=== PATIENT | female | born 1945 | race Caucasian/White ===

== ENCOUNTER 2018-01-16 22:19 | Emergency (ER) | payer MEDICARE, OTHER ==
[~2018-01-16] VITALS: Ht 165.1 cm; Wt 97.5 kg
[~2018-01-16 22:19] MED LIST: ASPIR 8181 MG PO; CHOLESTEROL; LEVAQUIN500 MG PO; LISINOPRIL40 MG PO; METFORMIN HCL500 MG PO; PRILOSEC OTC20 MG PO
[2018-01-16 22:52] LABS: BASOPHILS % 0.4 % (0.0-1.0); EOSINOPHILS # (AUTO) 0.1 (0.0-0.4); EOSINOPHILS % 0.8 % (0.0-6.0); HEMOGLOBIN 12.8 g/dL (12.0-16.0); LYMPHOCYTES # (AUTO) 2.3 (1.0-3.2); LYMPHOCYTES % 29.5 % (18.0-39.1); MEAN CORPUSCULAR HGB CONC 34.6 g/dL (31-35); MEAN CORPUSCULAR VOLUME 83.7 fL (81-99); MONOCYTES # (AUTO) 0.6 (0.2-0.8); MONOCYTES % 8.2 % (4.4-11.3); NEUTROPHILS # (AUTO) 4.6 (2.1-6.9); NEUTROPHILS % 60.6 % (38.7-80.0); PLATELET COUNT 119 x10e3/uL (140-360); RED BLOOD COUNT 4.42 x10e6/uL (3.6-5.1); RED CELL DISTRIBUTION WIDTH 13.2 % (11.7-14.4)
[2018-01-16 23:12] LABS: ALBUMIN 3.9 g/dL (3.5-5.0); ALBUMIN/GLOBULIN RATIO 1.1 (0.8-2.0); ANION GAP 15.9 mmol/L (8-16); CALCIUM 9.1 mg/dL (8.4-10.2); CREATININE, SERUM 1.03 mg/dL (0.57-1.11)
[2018-01-16 23:17] LABS: POTASSIUM 2.9 mmol/L (3.5-5.1)
[2018-01-16 23:20] LABS: CREATINE KINASE MB 1.8 ng/mL (0-5.0)
--- NOTE | 2018-01-16 23:23 | Diagnostic Imaging Report ---
EXAMINATION: CHEST 2 VIEWS INDICATION: Shortness of breath COMPARISON: 07/02/2015 FINDINGS: TUBES and LINES: None. LUNGS: Lungs are not well inflated. Lungs are clear. There is no evidence of pneumonia or pulmonary edema. PLEURA: No pleural effusion or pneumothorax. HEART AND MEDIASTINUM: Cardiac size is mildly enlarged. There are atherosclerotic calcifications within the aorta. BONES AND SOFT TISSUES: No acute osseous lesion. Soft tissues are unremarkable. UPPER ABDOMEN: No free air under the diaphragm. IMPRESSION: No acute thoracic abnormality. Signed by: Dr. Kristian Viramontes M.D. on 01/16/2018 11:19 PM
[2018-01-16 23:43] LABS: INR 0.98; PROTHROMBIN TIME 12.2 seconds (11.9-14.5)
[2018-01-16 23:44] LABS: PARTIAL THROMBOPLASTIN TIME 27.6 seconds (23.8-35.5)
[2018-01-17 00:04] LABS: BILIRUBIN,URINE NEGATIVE (NEGATIVE); CLARITY,URINE CLEAR (CLEAR); COLOR,URINE YELLOW (YELLOW); KETONES,URINE NEGATIVE (NEGATIVE); LEUKOCYTE ESTERASE ,URINE 1+ (NEGATIVE); NITRITE,URINE NEGATIVE (NEGATIVE); PROTEIN,URINE DIPSTICK NEGATIVE (NEGATIVE); URINE UROBILINOGEN 0.2 mg/dL (0.2 - 1)
[2018-01-17 00:13] LABS: BACTERIA,URINE FEW /HPF; EPITHELIAL CELLS,URINE FEW /LPF; RBC,URINE 0-5 /HPF (0-5)
[2018-01-17] MEDS ORDERED: POTASSIUM CHLORIDE 20 MEQ TAB CR PO STA (00:57)
[2018-01-17] MEDS ORDERED: CEFTRIAXONE SOD 1 GM VIAL IV ONE (01:00)
[2018-01-17 01:03] VITALS: BP 173/104
== END 2018-01-17 01:34 | disposition home or self-care (01) ==
LOC: ER 22:19
DX: R06.09 Other forms of dyspnea (principal); E87.6 Hypokalemia; K52.9 Noninfective gastroenteritis and colitis, unspecified; E87.1 Hypo-osmolality and hyponatremia; N30.90 Cystitis, unspecified without hematuria
CPT/HCPCS: 36415; 71046; 80053; 81001; 82550; 82553; 83880; 84484; 85025; 85610; 85730; 93005; 99284; J0696

== ENCOUNTER → 2018-03-13 | Outpatient (CLI) | payer MEDICARE ==
--- NOTE | 2018-03-13 08:55 | Diagnostic Imaging Report ---
PROCEDURE: CT CHEST WITHOUT CONTRAST CT scan of the chest WITHOUT intravenous contrast, using standard protocol. TECHNIQUE: The chest was scanned utilizing a multidetector helical scanner from the apex to the level of the adrenal glands. No IV contrast was administered because of referring physician request. Coronal and sagittal multiplanar reformations were obtained. COMPARISON: Chest radiograph 01/16/2018. INDICATIONS: DYSPNEA ON EXERTION FINDINGS: Lines/tubes: None. Lungs and Airways: 3 mm juxtapleural left lower lobe nodule series 3 image 37. 4 mm juxtapleural left lower lobe nodule series 3 image 39. Small air filled cyst in the left lower lobe. 4 mm right apical nodule series 3 image 11. No airspace consolidation, bronchiectasis, or fibrotic change. Pleura: No pleural effusion or pneumothorax Heart and mediastinum: Visualized portions of the thyroid gland appear normal. No axillary, hilar, or mediastinal lymphadenopathy. Borderline ectasia of the ascending thoracic aorta (3.9 cm). Pulmonary outflow tract is of normal caliber. Great vessel origins are normal in caliber and configuration. Atherosclerotic calcification of the aortic arch and great vessel origins. Normal heart size without pericardial effusion. Soft tissues: No focal soft tissue abnormalities. Abdomen: Visualized portions of the liver, spleen, pancreas, adrenals are unremarkable. Bones: No osseous destructive lesions. Multiple healed fracture deformities of several right-sided ribs. IMPRESSION: No acute thoracic CT abnormalities. Scattered bilateral solid pulmonary nodules measuring up to [address] scan of the chest without contrast in one year is suggested if the patient is at high risk for malignancy. (Fleischner Society 2017 guidelines). Atherosclerotic vascular disease with borderline ectasia of the ascending thoracic aorta (3.9 cm). Dictated by: Fabian Durham M.D. on 03/13/2018 at 9:03 Electronically approved by: Fabian Durham M.D. on 03/13/2018 at 9:03
== END ==
LOC: CT 07:42
PROVIDERS: ATTEND Internal Medicine
DX: R06.09 Other forms of dyspnea (principal)
CPT/HCPCS: 71250

== ENCOUNTER 2018-04-17 12:33 | Inpatient (IN) | payer MEDICARE, OTHER ==
[~2018-04-17] VITALS: Ht 165.1 cm; Wt 97.8 kg
[2018-04-17] MEDS ORDERED: VANCOMYCIN 1GM/NS 250 ML 250 ML IV STA (12:35)
[2018-04-17] MEDS ORDERED: PIPER-TAZ 3.375 GM 50 ML IV STA (12:35)
--- OUTSIDE RECORDS SUMMARY | 2018-04-17 12:36 | XMS REPORT ---
Author Author [facility] Address Unknown Phone Unavailable Care Team Providers Care Manager Billing Name Role Phone ULYSSES ESPINOZA Unavailable Unavailable Frederick KO Unavailable Unavailable Payers Payer Name Policy Type Policy Number Effective Date Expiration Date Problems This patient has no known problems. Allergies, Adverse Reactions, Alerts Allergy Name Allergy Type Status Severity Reaction(s) Onset Date Inactive Date Treating Clinician Comments codeine DA Active [place] 2014-09-02 00:00:00 Medications This patient has no known medications. Results Test Description Test Time Test Comments Text Results Atomic Results Result Comments CT CHEST WO 2018-03-13 09:03:00 [place] [address] Patient Name: MEREDITH LOVING MR #: [id number] : 1945 Age/Sex: 72/F Req #: [id number] Adm Physician: Ordered by: ULYSSES ESPINOZA MD Report #: [id number] Location: [place] Room/Bed: Procedure: [id number] CT/CT CHEST WO Exam Date: Exam Time: REPORT STATUS: Signed PROCEDURE: CT CHEST WITHOUT CONTRAST CT scan of the chest WITHOUT intravenous contrast, using standard protocol. TECHNIQUE: The chest was scanned utilizing a multidetector helical scanner from the apex to the level of the adrenal glands. No IV contrast was administered because of referring physician request. Coronal and sagittal multiplanar reformations were obtained. COMPARISON: Chest radiograph 01/16/2018. INDICATIONS: DYSPNEA ON EXERTION FINDINGS: Lines/tubes: None. Lungs and Airways: 3 mm juxtapleural left lower lobe nodule series 3 image 37. 4 mm juxtapleural left lower lobe nodule series 3 image 39. Small air filled cyst in the left lower lobe. 4 mm right apical nodule series 3 image 11. No airspace consolidation, bronchiectasis, or fibrotic change. Pleura: No pleural effusion or pneumothorax Heart and mediastinum: Visualized portions of the thyroid gland appear normal. No axillary, hilar, or mediastinal lymphadenopathy. Borderline ectasia of the ascending thoracic aorta (3.9 cm). Pulmonary outflow tract is of normal caliber. Great vessel origins are normal in caliber and configuration. Atherosclerotic calcification of the aortic arch and great vessel origins. Normal heart size without pericardial effusion. Soft tissues: No focal soft tissue abnormalities. Abdomen: Visualized portions of the liver, spleen, pancreas, adrenals are unremarkable. Bones: No osseous destructive lesions. Multiple healed fracture deformities of several right-sided ribs. IMPRESSION: No acute thoracic CT abnormalities. Scattered bilateral solid pulmonary nodules measuring up to [address] scan of the chest without contrast in one year is suggested if the patient is at high risk for malignancy. (Fleischner Society 2017 guidelines). Atherosclerotic vascular disease with borderline ectasia of the ascending thoracic aorta (3.9 cm). Dictated by: Ming Flores M.D. on 03/13/2018 at 9:03 Electronically approved by: Ming Flores M.D. on 03/13/2018 at 9:03 Dictated By: MING FLORES MD 2 Transcribed By: TYRESE on 03/13/18902 COPY TO: ULYSSES ESPINOZA MD CHEST 2 VIEWS 2018-01-16 23:19:00 [place] [address] Patient Name: MEREDITH LOVING MR #: [id number] : 1945 Age/Sex: 72/F Req #: [id number] Adm Physician: Ordered by: TRAY KO MD Report #: [id number] Location: ER Room/Bed: Procedure: [id number] DX/CHEST 2 VIEWS Exam Date: 01/16/18 Exam Time: 5 REPORT STATUS: Signed EXAMINATION: CHEST 2 VIEWS INDICATION: Shortness of breath COMPARISON: 07/02/2015 FINDINGS: TUBES and LINES: None. LUNGS: Lungs are not well inflated. Lungs are clear. There is no evidence of pneumonia or pulmonary edema. PLEURA: No pleural effusion or pneumothorax. HEART AND MEDIASTINUM: Cardiac size is mildly enlarged. There are atherosclerotic calcifications within the aorta. BONES AND SOFT TISSUES: No acute osseous lesion. Soft tissues are unremarkable. UPPER ABDOMEN: No free air under the diaphragm. IMPRESSION: No acute thoracic abnormality. Signed by: Dr. Kristian Viramontes M.D. on 01/16/2018 11:19 PM Dictated By: KRISTIAN HERNANDEZ MD 18 Transcribed By: KAREN on 01/16/182318 COPY TO: TRAY KO MD LOWER LEG LEFT [place] [address] Patient Name: MEREDITH LOVING MR #: [id number] : 1945 Age/Sex: 71/F Req #: [id number] Adm Physician: Ordered by: TRAY KO MD Report #: [id number] Location: ER Room/Bed: Procedure: [id number] DX/LOWER LEG LEFT Exam Date: 04/17/17 Exam Time: 2139 REPORT STATUS: Signed LOWER LEG LEFT HISTORY: Pain COMPARISON: None FINDINGS: Bones: Questionable cortical disruption at the proximal left fibular epiphysis Osseous alignment is within normal limits. Joints: Mild degenerative changes of the partially visualized left knee with medial compartment predominance. Soft tissues: The soft tissues appear unremarkable. IMPRESSION: Questionable cortical disruption at the proximal left fibular epiphysis. Correlated for point tenderness at the lateral lower knee Signed by: Dr. Kristian Viramontes M.D. on 04/17/2017 10:22 PM Dictated By: KRISTIAN HERNANDEZ MD 21 Transcribed By: KAREN on 04/17/172221 COPY TO: TRAY KO MD [place] [address] Patient Name: MEREDITH LOVING MR #: [id number] : 1945 Age/Sex: 71/F Req #: [id number] Adm Physician: Ordered by: TRAY KO MD Report #: [id number] Location: ER Room/Bed: Procedure: DX/COCCYX Exam Date: 04/17/17 Exam Time: 2139 REPORT STATUS: Signed LUMBAR 3 VIEW AND 2 VIEWS OF THE COCCYX HISTORY: Status post fall COMPARISON: None FINDINGS: Bones: No displaced fracture. Osseous alignment is within normal limits. Joints: Multilevel degenerative changes of the lumbar spine with extensive facet hypertrophy and anterolisthesis of L4 on L5 best seen on lateral view. Soft tissues: The soft tissues appear unremarkable. IMPRESSION: No acute radiographic abnormality. Signed by: Dr. Kristian Viramontes M.D. on 04/17/2017 10:23 PM Dictated By: KRISTIAN HERNANDEZ MD 22 Transcribed By: KAREN on 04/17/172222 COPY TO: TRAY KO MD LUMBAR 3 VIEW [place] [address] Patient Name: MEREDITH LOVING MR #: [id number] : 1945 Age/Sex: 71/F Req #: [id number] [facility] Physician: Ordered by: TRAY KO MD Report #: [id number] Location: ER Room/Bed: Procedure: DX/LUMBAR 3 VIEW Exam Date: 04/17/17 Exam Time: 2139 REPORT STATUS: Signed LUMBAR 3 VIEW AND 2 VIEWS OF THE COCCYX HISTORY: Status post fall COMPARISON: None FINDINGS: Bones: No displaced fracture. Osseous alignment is within normal limits. Joints: Multilevel degenerative changes of the lumbar spine with extensive facet hypertrophy and anterolisthesis of L4 on L5 best seen on lateral view. Soft tissues: The soft tissues appear unremarkable.
--- OUTSIDE RECORDS SUMMARY | 2018-04-17 12:36 | XMS REPORT | Clinical Summary ---
Author Author [facility] Address Unknown Phone Unavailable Care Team Providers Care Equipment Cleaner And Tester Name Role Phone Matt Marino MD PCP Allergies Comments Active Allergy Reactions Severity Noted Date Codeine GI 11/29/2016 Intolerance Medications End Date Status Medication Sig Dispensed Refills Start Date Active aspirin (ECOTRIN) 81 MG Take 81 mg by 0 enteric coated tablet mouth daily. Active hydroCHLOROthiazide Take 25 mg by 0 (HYDRODIURIL) 25 MG mouth daily. tablet Active pravastatin (PRAVACHOL) Take 40 mg by 0 40 MG tablet mouth daily. Active pantoprazole (PROTONIX) Take 40 mg by 0 40 MG EC tablet mouth daily. Active CHOLECALCIFEROL, VITAMIN Take by 0 D3, (VITAMIN D3 ORAL) mouth. 08/17/2017 amoxicillin (AMOXIL) 500 Take 1 14 capsule 0 MG capsule capsule (500 8 mg total) by mouth 2 (two) times a day for 7 days. 09/09/2017 chlorhexidine (PERIDEX) Apply 15 mL 900 mL 0 0.12 % solution to the mouth 8 or throat 2 (two) times a day for 30 days. Active Problems No known active problems Encounters Care Team Description Date Type Specialty Tory Tsang MD Granuloma and granuloma-like lesions of oral mucosa (Primary Dx) 09/07/2017 Office Visit Otolaryngology Tory Tsang MD 08/11/2017 Lab Lab Tory Tsang MD Oral bleeding (Primary Dx) 08/11/2017 Office Visit Otolaryngology Tory Tsang MD 08/10/2017 Lab Lab Tory Tsang MD Pyogenic granuloma oral mucosa (Primary Dx) 08/10/2017 Procedure visit Otolaryngology Tory Tsang MD Pyogenic granuloma (Primary Dx) 07/29/2017 Office Visit Otolaryngology Tory Tsang MD Mandibular mass 07/25/2017 Hospital Radiology Encounter Tory Tsang MD Mandibular mass (Primary Dx) 07/18/2017 Office Visit Otolaryngology after 04/16/2017 Family History Medical History Relation Name Comments Cancer Father bone Other Father heart problems Other Mother heart problems Stroke Mother Cancer Son Relation Name Status Comments Father Mother Son Social History Date Tobacco Use Types Packs/Day Years Used Never Smoker Smokeless Tobacco: Never Used Alcohol Use Drinks/Week oz/Week Comments Yes rarely Sex Assigned at Date Recorded Not on file Industry Job Start Date Occupation Not on file Not on file Not on file Travel End Travel History Travel Start No recent travel history available. Last Filed Vital Signs Time Taken Vital Sign Reading 09/07/2017 10:01 AM CDT Blood Pressure 161/90 09/07/2017 10:01 AM CDT Pulse 62 - Temperature - - Respiratory Rate - - Oxygen Saturation - - Inhaled Oxygen - Concentration 09/07/2017 10:01 AM CDT Weight 98 kg (216 lb) 09/07/2017 10:01 AM CDT Height 165.1 cm (5' 5") 09/07/2017 10:01 AM CDT Body Mass Index 35.94 Plan of Treatment Health Maintenance Due Date Last Done Comments BREAST CANCER SCREENING 08/06/1995 COLON CANCER SCREENING 08/06/1995 SHINGRIX VACCINE (1 of 2) 08/06/1995 ZOSTER VACCINE 2005 PNEUMOCOCCAL 2010 POLYSACCHARIDE VACCINE AGE 65 AND OVER PNEUMOCOCCAL-13 2010 INFLUENZA VACCINE 01/04/2018 Procedures Comments Procedure Name Priority Date/Time Associated Diagnosis SURGICAL PATHOLOGY Routine 08/10/2017 REQUEST 10:[address] MAXILLOFACIAL WO Routine 07/25/2017 Mandibular mass CONTRAST 10:22 AM TRANSITION RN after 04/16/2017 Results * Surgical pathology request (08/10/2017 10:00 AM TRANSITION RN) [facility] DEPARTMENT OF PATHOLOGY AND GENOMIC MEDICINE Surgical pathology report See link below for PDF Lab [facility] DEPARTMENT OF Report PATHOLOGY AND GENOMIC MEDICINE Result status This is Final Report to [facility] DEPARTMENT OF [id number] PATHOLOGY AND GENOMIC MEDICINE Performing Organization Address City/State/Zipcode [place] [address] [place] [address] PATHOLOGY AND GENOMIC MEDICINE * CT Maxillofacial Wo Contrast (07/25/2017 10:22 AM TRANSITION RN) Narrative Performed At EXAMINATION:CT MAXILLOFACIAL WO CONTRAST [facility] COMPARISON:None CLINICAL HISTORY:R22.0 Localized swellingmass and lumphead, MASS OR LUMPMAXFACE, left mandibular posterior prominencetenderness TECHNIQUE: Coronal and sagittal reformations were accomplished. Up to date CT equipment and radiation dose reduction techniques were utilized. FINDINGS: No mass is identified posterior to the left mandible. The underlying bone is unremarkable. The parotid and submandibular glands are unremarkable. There are some scattered reactive nodes, but no adenopathy. There has been prior endoscopic sinus surgery. There continues to be mucosal thickening in the right maxillary sinus. The nasal cavity is clear. IMPRESSION: Unremarkable study. [facility]-[id number] Procedure Note Hm Interface, Radiology Results Incoming - 07/25/2017 11:08 AM TRANSITION RN EXAMINATION: CT MAXILLOFACIAL WO CONTRAST COMPARISON: None CLINICAL HISTORY: R22.0 Localized swelling mass and lump head, MASS OR LUMP MAXFACE, left mandibular posterior prominence tenderness TECHNIQUE: Coronal and sagittal reformations were accomplished. Up to date CT equipment and radiation dose reduction techniques were utilized. FINDINGS: No mass is identified posterior to the left mandible. The underlying bone is unremarkable. The parotid and submandibular glands are unremarkable. There are some scattered reactive nodes, but no adenopathy. There has been prior endoscopic sinus surgery. There continues to be mucosal thickening in the right maxillary sinus. The nasal cavity is clear. IMPRESSION: Unremarkable study. [facility]-[id number] Performing Organization Address City/State/Zipcode Phone Number [facility] [address] [place] [address] after 04/16/2017 Insurance Payer Benefit Subscriber ID Type Phone Address Plan / Group [employer] CIGNA xxxxxxxx HMO [facility] ADV Advance Directives Patient has advance care planning documents on file. For more information, harrison singh contact: Christiano Aldridge [address] [place] [address]
[2018-04-17 14:03] LABS: BASOPHILS # (AUTO) 0.1 (0.0-0.1); BASOPHILS % 0.6 % (0.0-1.0); EOSINOPHILS # (AUTO) 0.1 (0.0-0.4); EOSINOPHILS % 1.5 % (0.0-6.0); HEMATOCRIT 38.4 % (34.2-44.1); HEMOGLOBIN 12.8 g/dL (12.0-16.0); LYMPHOCYTES # (AUTO) 1.8 (1.0-3.2); MEAN CORPUSCULAR HEMOGLOBIN 30.3 pg (28-32); MEAN CORPUSCULAR HGB CONC 33.3 g/dL (31-35); MEAN CORPUSCULAR VOLUME 90.8 fL (81-99); MONOCYTES # (AUTO) 0.6 (0.2-0.8); MONOCYTES % 6.9 % (4.4-11.3); NEUTROPHILS # (AUTO) 6.4 (2.1-6.9); NEUTROPHILS % 70.1 % (38.7-80.0); PLATELET COUNT 115 x10e3/uL (140-360); RED BLOOD COUNT 4.23 x10e6/uL (3.6-5.1); RED CELL DISTRIBUTION WIDTH 13.6 % (11.7-14.4)
[2018-04-17 14:10] LABS: INR 0.87; PROTHROMBIN TIME 12.7 seconds (11.9-14.5)
[2018-04-17 14:11] LABS: PARTIAL THROMBOPLASTIN TIME 26.7 seconds (23.8-35.5)
[2018-04-17 14:18] LABS: ALBUMIN 4.1 g/dL (3.5-5.0); ALBUMIN/GLOBULIN RATIO 1.1 (0.8-2.0); ANION GAP 17.8 mmol/L (8-16); CALCIUM 8.9 mg/dL (8.4-10.2); CREATININE, SERUM 1.37 mg/dL (0.57-1.11); POTASSIUM 3.8 mmol/L (3.5-5.1)
[2018-04-17] MEDS ORDERED: ONDANSETRON HCL INJ 2 MG/ML VIAL IV PRN (14:45)
[2018-04-17] MEDS ORDERED: MORPHINE SULFATE 2 MG/ML SYR IV PRN (14:45)
[2018-04-17] MEDS ORDERED: SODIUM CHLORIDE FLUSH 10 ML SYR INJ PRN (14:45)
[2018-04-17] MEDS ORDERED: DEXTROSE 50% SYRINGE 50 ML IV PRN (14:45)
[2018-04-17] MEDS ORDERED: MORPHINE SULFATE INJ 4 MG/ML INJ IV PRN (15:00)
--- OUTSIDE RECORDS SUMMARY | 2018-04-17 15:51 | XMS REPORT | Clinical Summary ---
Author Author [facility] Address Unknown Phone Unavailable Care Team Providers Care Cook Italian Style Food Name Role Phone Matt Marino MD PCP [...] SURGICAL PATHOLOGY Routine 08/10/2017 REQUEST 10:00 AM PROFESSOR OF MECHANICAL ENGINEERING CT MAXILLOFACIAL WO Routine 07/25/2017 Mandibular mass CONTRAST 10:22 AM PROFESSOR OF MECHANICAL ENGINEERING after 04/16/2017 Results * Surgical pathology request (08/10/2017 10:00 AM PROFESSOR OF MECHANICAL ENGINEERING) [facility] DEPARTMENT OF PATHOLOGY AND GENOMIC MEDICINE Surgical pathology report See link below for PDF Lab [facility] DEPARTMENT OF Report PATHOLOGY AND GENOMIC MEDICINE Result status This is Final Report to [facility] DEPARTMENT OF [id number] PATHOLOGY AND GENOMIC MEDICINE Performing Organization Address City/State/Zipcode [place] [address] [place] [address] PATHOLOGY AND GENOMIC MEDICINE * CT Maxillofacial Wo Contrast (07/25/2017 10:22 AM PROFESSOR OF MECHANICAL ENGINEERING) Narrative Performed At EXAMINATION:CT MAXILLOFACIAL WO CONTRAST [...] nasal cavity is clear. IMPRESSION: Unremarkable study. [facility]-[id number] Procedure Note Hm Interface, Radiology Results Incoming - 07/25/2017 11:08 AM PROFESSOR OF MECHANICAL ENGINEERING EXAMINATION: CT MAXILLOFACIAL WO CONTRAST COMPARISON: None [...] nasal cavity is clear. IMPRESSION: Unremarkable study. [facility]-[id number] Performing Organization Address City/State/Zipcode Phone Number [facility] [address] [place] [address] after 04/16/2017 Insurance Payer Benefit Subscriber ID Type Phone Address Plan / Group [employer] CIGNA xxxxxxxx HMO [employer] [facility] [facility] ADV Advance Directives Patient has advance care planning documents on file. For more information, harrison singh contact: Christiano Aldridge [address] [facility] [place] [address]
[2018-04-17] MEDS: PIPER-TAZ 3.375 GM 50 ML IV SCH ×2 (18:22→23:44)
[2018-04-17] MEDS ORDERED: DIPHENHYDRAMINE HCL INJ 50 MG/ML VIAL ONE (20:02)
[2018-04-17] MEDS ORDERED: METHYLPREDNISOLONE SOD SUCC 125 MG/2ML VIAL ONE (20:02)
[2018-04-17] MEDS ORDERED: FAMOTIDINE 20 MG/2 ML VIAL IV ONE (20:02)
[2018-04-17] MEDS ORDERED: METHYLPREDNISOLONE SOD SUCC 125 MG/2ML VIAL IV ONE (20:04)
[2018-04-17] MEDS ORDERED: DIPHENHYDRAMINE HCL INJ 50 MG/ML VIAL IV ONE (20:15)
[2018-04-17] MEDS ORDERED: BUMETANIDE1 MG PO (20:38)
[2018-04-17] MEDS ORDERED: POTASSIUM CHLO10 ME1 PO (20:38)
[2018-04-17] MEDS ORDERED: PRAVASTATIN SOD40 MG PO (20:38)
[2018-04-17] MEDS ORDERED: CLINDAMYCIN HC150 MG (20:38)
[2018-04-17] MEDS ORDERED: NIFEDIPINE ER30 M1 PO (20:38)
[2018-04-17] MEDS ORDERED: ALBUTEROL0.63 MG/3 IH (20:38)
[2018-04-17] MEDS ORDERED: ULTRAM50 MG PO (20:38)
[2018-04-17] MEDS ORDERED: VANCOMYCIN 1GM/NS 250 ML 250 ML IV SCH (21:00)
[2018-04-17] MEDS: INSULIN REGULAR, HUMAN 100 UNIT/1 ML 3ML VIAL SQ SCH ×2 (21:00→21:37)
[2018-04-17] MEDS: FUROSEMIDE INJ 10 MG/ML 4 ML VIAL IV SCH (21:36)
[2018-04-17 21:54] VITALS: BP 142/82
[2018-04-17] MEDS ORDERED: SODIUM CHLORIDE 0.9% 250ML 250 ML ONE (23:36)
[2018-04-18] VITALS (7 sets, daily range): BP systolic 115–142; BP diastolic 71–91
[2018-04-18] MEDS ORDERED: PROAIR HFA INH8.5 GM ×2 (05:24→05:34)
[2018-04-18] MEDS ORDERED: POTASSIUM CHLO20 ME1 PO (05:24)
[2018-04-18] MEDS ORDERED: PANTOPRAZOLE SO40 MG PO (05:24)
[2018-04-18] MEDS ORDERED: ALBUTEROL SULFATE HFA 8GM INHALATION AEROSOL INH PRN (05:45)
[2018-04-18] MEDS ORDERED: TRAMADOL HCL 50 MG TAB PO PRN (05:45)
[2018-04-18 05:52] LABS: BASOPHILS % 0.1 % (0.0-1.0); HEMATOCRIT 38.7 % (34.2-44.1); LYMPHOCYTES # (AUTO) 0.7 (1.0-3.2); LYMPHOCYTES % 9.2 % (18.0-39.1); MEAN CORPUSCULAR HEMOGLOBIN 30.4 pg (28-32); MEAN CORPUSCULAR HGB CONC 33.6 g/dL (31-35); MEAN CORPUSCULAR VOLUME 90.4 fL (81-99); MONOCYTES # (AUTO) 0.1 (0.2-0.8); MONOCYTES % 1.2 % (4.4-11.3); NEUTROPHILS # (AUTO) 6.7 (2.1-6.9); NEUTROPHILS % 88.7 % (38.7-80.0); PLATELET COUNT 103 x10e3/uL (140-360); RED BLOOD COUNT 4.28 x10e6/uL (3.6-5.1); RED CELL DISTRIBUTION WIDTH 13.3 % (11.7-14.4)
[2018-04-18] MEDS: PIPER-TAZ 3.375 GM 50 ML IV SCH ×4 (05:53→23:34)
[2018-04-18 06:13] LABS: ANION GAP 18.8 mmol/L (8-16); CALCIUM 8.6 mg/dL (8.4-10.2); CREATININE, SERUM 1.22 mg/dL (0.57-1.11); POTASSIUM 3.8 mmol/L (3.5-5.1)
[2018-04-18] MEDS: INSULIN REGULAR, HUMAN 100 UNIT/1 ML 3ML VIAL SQ SCH ×4 (07:30→21:00)
[2018-04-18] MEDS: NIFEDIPINE CR 30 MG TAB PO SCH (08:20)
[2018-04-18] MEDS: FUROSEMIDE INJ 10 MG/ML 4 ML VIAL IV SCH ×2 (08:20→21:24)
[2018-04-18] MEDS: ASPIRIN 81 MG CHEW TAB PO SCH (08:20)
[2018-04-18] MEDS: BUMETANIDE 1 MG TAB PO SCH (08:20)
[2018-04-18] MEDS: PANTOPRAZOLE SOD 40 MG TABEC PO SCH (08:20)
[2018-04-18] MEDS: POTASSIUM CHLORIDE 20 MEQ TAB CR PO SCH (21:24)
[2018-04-18] MEDS: PRAVASTATIN 20 MG TAB PO SCH (21:24)
[2018-04-19] VITALS (7 sets, daily range): BP systolic 117–142; BP diastolic 66–86
[2018-04-19] MEDS ORDERED: ZOLPIDEM TARTRATE 5 MG TAB PO PRN (04:15)
[2018-04-19] MEDS: PIPER-TAZ 3.375 GM 50 ML IV SCH ×3 (05:11→18:28)
[2018-04-19] MEDS: INSULIN REGULAR, HUMAN 100 UNIT/1 ML 3ML VIAL SQ SCH ×4 (07:30→21:40)
[2018-04-19] MEDS: FUROSEMIDE INJ 10 MG/ML 4 ML VIAL IV SCH ×2 (09:50→21:41)
[2018-04-19] MEDS: NIFEDIPINE CR 30 MG TAB PO SCH (09:50)
[2018-04-19] MEDS: ASPIRIN 81 MG CHEW TAB PO SCH (09:50)
[2018-04-19] MEDS: BUMETANIDE 1 MG TAB PO SCH (09:50)
[2018-04-19] MEDS: PANTOPRAZOLE SOD 40 MG TABEC PO SCH (09:50)
[2018-04-19] MEDS: METOPROLOL TARTRATE 25 MG TAB PO SCH ×2 (14:28→18:28)
--- NOTE | 2018-04-19 14:58 | Consultation ---
DATE OF CONSULTATION: CARDIOLOGY CONSULTATION REASON FOR CONSULTATION: Heart failure. HISTORY OF PRESENT ILLNESS: This is a 72-year-old woman who has a prior history of hypertension, hyperlipidemia, diabetes mellitus, chronic kidney disease, chronic shortness of breath, lower extremity swelling, and venous insufficiency, who presented from her primary care provider with cellulitis, shortness of breath, lower extremity swelling. The patient reports progressively worsening shortness of breath, mild to moderate intensity. No other exacerbating or relieving factors. No associated chest pain. The patient had an abnormal stress test and underwent left heart catheterization, which revealed normal coronary arteries and left ventricular end-diastolic pressure of 9 mmHg. There were plans for right heart catheterization to rule out pulmonary hypertension; however, this was delayed due to ongoing medical issues. She was initiated on Bumex 1 mg twice daily for her lower extremity swelling. The patient also reports redness and warmth to her lower extremities. REVIEW OF SYSTEMS: A 12-point review of systems was conducted and was negative other than stated above in the HPI. PAST MEDICAL HISTORY: As stated above in the HPI including hypertension, chronic kidney disease, hyperlipidemia, chronic shortness of breath, venous insufficiency. PAST SURGICAL HISTORY: Cardiac catheterization, cholecystectomy, hysterectomy. FAMILY HISTORY: No premature coronary artery disease or sudden cardiac . SOCIAL HISTORY: No illicit drug use, alcohol use or tobacco use. ALLERGIES: CODEINE. MEDICATIONS: Please see medication reconciliation form. PHYSICAL EXAMINATION VITAL SIGNS: Temperature 96.6, heart rate 110, blood pressure 120/71, oxygen saturation 92% on room air, respiratory rate 20. GENERAL: She is a well-appearing, elderly woman lying comfortably in bed. HEAD: Normocephalic and atraumatic. EYES: The extraocular movements are intact. Conjunctivae are clear. NECK: No JVD. No bruits. CARDIOVASCULAR: She is tachycardic, regular rhythm with ectopy. Normal S1 and S2. No murmur is appreciated. LUNGS: Diminished breath sounds at bilateral bases. ABDOMEN: Soft, nontender and nondistended. EXTREMITIES: There is 1 to 2+ pitting edema. There is erythema. VASCULAR: Diminished pulses. SKIN: Warm, dry. Erythema to the lower extremities. NEUROLOGIC: No focal deficits noted. All laboratory data and chemistries were reviewed. CT of the chest shows no acute thoracic CT abnormalities. Scattered small pulmonary nodules. Ectasia of the thoracic aorta at 3.9 cm. IMPRESSION AND RECOMMENDATIONS 1. Shortness of breath. This patient has chronic shortness of breath and is currently being evaluated as an outpatient. Her echocardiogram showed normal left ventricular size and function. I can perform a right heart catheterization, which was planned already as an outpatient, if the patient has no bacteremia and is hemodynamically stable. Defer all other evaluations and treatments to pulmonary. 2. Hypertension. The patient's blood pressure is well controlled. The patient is on nifedipine. Can consider taking her off of this, as this has a known side effect of lower extremity swelling. 3. Venous insufficiency. Treatment as an outpatient. 4. Lower extremity swelling and cellulitis. Antibiotics per primary team. Continue Bumex, however, increase this to b.i.d. dosing. Thank you for this consultation. We will follow along with you. Job#: [id number]
[2018-04-19] MEDS: PRAVASTATIN 20 MG TAB PO SCH (21:41)
[2018-04-19] MEDS: POTASSIUM CHLORIDE 20 MEQ TAB CR PO SCH (21:41)
[2018-04-20] VITALS (7 sets, daily range): BP systolic 105–174; BP diastolic 64–78
[2018-04-20] MEDS: PIPER-TAZ 3.375 GM 50 ML IV SCH ×4 (00:23→18:17)
[2018-04-20] MEDS: METOPROLOL TARTRATE 25 MG TAB PO SCH ×4 (00:24→18:17)
[2018-04-20 05:55] LABS: BASOPHILS % 0.5 % (0.0-1.0); EOSINOPHILS # (AUTO) 0.1 (0.0-0.4); EOSINOPHILS % 0.8 % (0.0-6.0); HEMATOCRIT 33.5 % (34.2-44.1); HEMOGLOBIN 11.3 g/dL (12.0-16.0); LYMPHOCYTES # (AUTO) 1.9 (1.0-3.2); LYMPHOCYTES % 29.4 % (18.0-39.1); MEAN CORPUSCULAR HEMOGLOBIN 30.2 pg (28-32); MEAN CORPUSCULAR HGB CONC 33.7 g/dL (31-35); MEAN CORPUSCULAR VOLUME 89.6 fL (81-99); MONOCYTES # (AUTO) 0.5 (0.2-0.8); MONOCYTES % 8.3 % (4.4-11.3); NEUTROPHILS # (AUTO) 3.9 (2.1-6.9); NEUTROPHILS % 60.2 % (38.7-80.0); PLATELET COUNT 154 x10e3/uL (140-360); RED BLOOD COUNT 3.74 x10e6/uL (3.6-5.1); RED CELL DISTRIBUTION WIDTH 13.5 % (11.7-14.4)
[2018-04-20 06:19] LABS: ALBUMIN 3.2 g/dL (3.5-5.0); CALCIUM 9.1 mg/dL (8.4-10.2); CREATININE, SERUM 1.28 mg/dL (0.57-1.11)
[2018-04-20] MEDS: INSULIN REGULAR, HUMAN 100 UNIT/1 ML 3ML VIAL SQ SCH ×4 (07:30→21:00)
[2018-04-20] MEDS ORDERED: POTASSIUM CHLORIDE 20 MEQ TAB CR PO NR (07:30)
[2018-04-20] MEDS: NIFEDIPINE CR 30 MG TAB PO SCH (09:15)
[2018-04-20] MEDS: PANTOPRAZOLE SOD 40 MG TABEC PO SCH (09:15)
[2018-04-20] MEDS: BUMETANIDE 1 MG TAB PO SCH (09:15)
[2018-04-20] MEDS: ASPIRIN 81 MG CHEW TAB PO SCH (09:15)
[2018-04-20] MEDS: FUROSEMIDE INJ 10 MG/ML 4 ML VIAL IV SCH ×2 (10:00→21:00)
--- NOTE | 2018-04-20 16:01 | Progress Note ---
DATE: CARDIOLOGY PROGRESS NOTE SUBJECTIVE: Patient overall feeling much better. Her swelling has gone down. The redness of her lower extremities has also gone down. She is not short of breath and denies any chest pain. OBJECTIVE VITAL SIGNS: Temperature 97.4 Fahrenheit. Heart rate is 73. Respirations are 18. Blood pressure is 107/74. Oxygen saturation is 98% on room air. GENERALLY: She is well-appearing, well-built, no apparent distress. CARDIOVASCULAR: Regular rate and rhythm. No murmurs. LUNGS: Diminished breath sounds in the bilateral bases. ABDOMEN: Soft, nontender, nondistended. EXTREMITIES: 1+ edema. Erythema has improved. NEUROLOGIC: No focal deficits noted. Medications reviewed. All laboratory and imaging data were reviewed. Telemetry showed normal sinus rhythm. IMPRESSION/RECOMMENDATIONS 1. Shortness of breath. Patient has chronic shortness of breath, and this appears at baseline. She feels much better after intravenous Lasix. Please restart Bumex 1 mg p.o. b.i.d. at the time of discharge. Her right heart catheterization can be performed as an outpatient once she has recovered from this cellulitis episode. There is no urgent or emergent need for her right heart catheterization during this hospitalization. 2. Hypertension. The patient's blood pressure is well controlled. Would like to discontinue her nifedipine as this may be exacerbating her lower extremity swelling. Can continue metoprolol at a lower dose at 25 mg q.12 h. instead of q.6 h. If needed, patient may be initiated on other antihypertensive regimens that do not cause lower extremity edema, such as an PRO inhibitor or an ARB. Patient would then need close outpatient monitoring of her creatinine. 3. Cellulitis. Antibiotic therapies per primary team. She is stable from a cardiovascular standpoint. Right heart catheterization can be performed as an outpatient once she is recovered from her cellulitis. Job#: [id number] EV
[2018-04-20] MEDS: POTASSIUM CHLORIDE 20 MEQ TAB CR PO SCH (21:00)
[2018-04-20] MEDS: PRAVASTATIN 20 MG TAB PO SCH (21:00)
[2018-04-21] VITALS (7 sets, daily range): BP systolic 101–146; BP diastolic 59–87
[2018-04-21] MEDS ORDERED: SODIUM CHLORIDE 0.9% 250ML 250 ML ONE (00:23)
[2018-04-21] MEDS: PIPER-TAZ 3.375 GM 50 ML IV SCH ×5 (05:21→23:19)
[2018-04-21] MEDS: METOPROLOL TARTRATE 25 MG TAB PO SCH ×5 (05:22→23:19)
[2018-04-21] MEDS: INSULIN REGULAR, HUMAN 100 UNIT/1 ML 3ML VIAL SQ SCH ×4 (07:30→20:59)
[2018-04-21] MEDS: NIFEDIPINE CR 30 MG TAB PO SCH (09:00)
[2018-04-21] MEDS: BUMETANIDE 1 MG TAB PO SCH (09:00)
[2018-04-21] MEDS: ASPIRIN 81 MG CHEW TAB PO SCH (09:00)
[2018-04-21] MEDS: PANTOPRAZOLE SOD 40 MG TABEC PO SCH (09:00)
[2018-04-21] MEDS: FUROSEMIDE INJ 10 MG/ML 4 ML VIAL IV SCH ×2 (09:02→20:58)
[2018-04-21] MEDS: POTASSIUM CHLORIDE 20 MEQ TAB CR PO SCH (20:58)
[2018-04-21] MEDS: PRAVASTATIN 20 MG TAB PO SCH (20:58)
[2018-04-22 00:18] VITALS: BP 125/77
--- NOTE | 2018-04-22 03:27 | Progress Note ---
DATE: CARDIOLOGY PROGRESS NOTE SUBJECTIVE: Patient feels much better. Denies any shortness of breath, chest pain, and reports extreme improvement in her lower extremity swelling. OBJECTIVE VITAL SIGNS: Temperature is 97.7, heart rate is 77, respirations are 18, oxygen saturation is 98% on room air, and blood pressure is 142/79. GENERAL: She is a well-appearing, well-built, in no apparent distress. HEAD: Normocephalic, atraumatic. LUNGS: Clear to auscultation. CARDIOVASCULAR: Regular rate and rhythm. ABDOMEN: Soft and nontender. EXTREMITIES: Edema to skin, erythema over the lower extremities. NEUROLOGIC: No focal deficits noted. Telemetry monitoring revealed normal sinus rhythm. MEDICATIONS: Reviewed. LABORATORY DATA: Reviewed. IMPRESSION/RECOMMENDATIONS 1. Shortness of breath. Patient has improved greatly with diuresis. We will change Lasix intravenously to bumetanide 1 mg p.o. b.i.d. She can be evaluated as an outpatient. There was no urgent need for right heart catheterization at this point in time. 2. Hypertension. Patient's blood pressure is currently elevated. She can increase her antihypertensive regimen as needed. 3. Cellulitis. Antibiotic therapies per primary team. The patient is stable from cardiovascular standpoint. Change Bumex to 1 mg p.o. b.i.d. She may be discharged from cardiovascular standpoint to follow up as an outpatient. Again, no urgent need for right heart catheterization and we will allow her to recover from her cellulitis. Job#: [id number] RTY
[2018-04-22 05:23] VITALS: BP 132/66
[2018-04-22] MEDS: METOPROLOL TARTRATE 25 MG TAB PO SCH (05:36)
[2018-04-22] MEDS: PIPER-TAZ 3.375 GM 50 ML IV SCH (05:36)
[2018-04-22 05:59] LABS: ALBUMIN 3.3 g/dL (3.5-5.0); ALBUMIN/GLOBULIN RATIO 1.1 (0.8-2.0); ANION GAP 16.3 mmol/L (8-16); CALCIUM 8.5 mg/dL (8.4-10.2); CREATININE, SERUM 1.17 mg/dL (0.57-1.11); POTASSIUM 3.3 mmol/L (3.5-5.1)
[2018-04-22] MEDS: INSULIN REGULAR, HUMAN 100 UNIT/1 ML 3ML VIAL SQ SCH (07:30)
[2018-04-22 08:10] VITALS: BP 114/67
[2018-04-22] MEDS: ASPIRIN 81 MG CHEW TAB PO SCH (09:00)
[2018-04-22] MEDS: NIFEDIPINE CR 30 MG TAB PO SCH (09:00)
[2018-04-22] MEDS: FUROSEMIDE INJ 10 MG/ML 4 ML VIAL IV SCH (09:00)
[2018-04-22] MEDS: BUMETANIDE 1 MG TAB PO SCH (09:00)
[2018-04-22] MEDS: PANTOPRAZOLE SOD 40 MG TABEC PO SCH (09:00)
[2018-04-22 09:11] VITALS: BP 114/67
[2018-04-22] MEDS ORDERED: LEVAQUIN500 MG PO (09:37)
[2018-05-10] MEDS ORDERED: POTASSIUM CHLO10 ME1 PO ×2 (12:32→12:52)
[2018-05-10] MEDS ORDERED: ALEVE220 MG PO (12:32)
== END 2018-04-22 10:23 | disposition home or self-care (01) | DRG 603 ==
LOC: ER 12:33 → ERHOLD 15:48 → MED/SURG 21:54 → MED/SURG2 04-19 14:41
PROVIDERS: ADMIT Internal Medicine; ATTEND Internal Medicine
DX: L03.115 Cellulitis of right lower limb (principal); I13.0 Hypertensive heart and chronic kidney disease with heart failure and stage 1 through stage 4 chronic kidney disease, or unspecified chronic kidney disease; L03.116 Cellulitis of left lower limb; E11.22 Type 2 diabetes mellitus with diabetic chronic kidney disease; N18.3 Chronic kidney disease, stage 3 (moderate); I50.812 Chronic right heart failure; E78.5 Hyperlipidemia, unspecified; I87.2 Venous insufficiency (chronic) (peripheral); Z79.82 Long term (current) use of aspirin; Z88.5 Allergy status to narcotic agent; Z28.21 Immunization not carried out because of patient refusal
CPT/HCPCS: 36415; 80048; 80053; 82948; 83735; 83880; 85025; 85610; 85730; 93005; 93041; 99284; J1200; J1940; J2270; J2543; J2930; J3370; J7050

== ENCOUNTER → 2018-05-11 | Day surgery (SDC) | payer MEDICARE ==
[~2018-05-11] VITALS: Ht 165.1 cm; Wt 99.8 kg
[~2018-05-11] MED LIST changes: +ALBUTEROL0.63 MG/3 IH; +ALEVE220 MG PO; +BUMETANIDE1 MG PO; +CLINDAMYCIN HC150 MG; +FENTANYL CITRATE/PF 100MCG/2 ML INJ ONE; +HEPARIN SOD/SOD CHLORIDE 2,000 ML ONE; +LIDOCAINE HCL 2% LOCAL 20 ML VIAL ONE; +MIDAZOLAM HCL 2 MG/2 ML VIAL ONE; +NIFEDIPINE ER30 M1 PO; +PANTOPRAZOLE SO40 MG PO; +POTASSIUM CHLO10 ME1 PO; +POTASSIUM CHLO20 ME1 PO; +PRAVASTATIN SOD40 MG PO; +PROAIR HFA INH8.5 GM; +SODIUM CHLORIDE 0.9% 1000ML 1,000 ML ONE; +ULTRAM50 MG PO
--- OUTSIDE RECORDS SUMMARY | 2018-05-11 08:00 | XMS REPORT | Clinical Summary ---
Author Author [facility] Organization [employer] Address Unknown Phone Unavailable Care Team Providers Care Drawer In Name Role Phone Matt Marino MD PCP [...] (Primary Dx) 07/18/2017 Office Visit Otolaryngology after 05/10/2017 Family History Medical History Relation Name Comments [...] SURGICAL PATHOLOGY Routine 08/10/2017 REQUEST 10:[address] MAXILLOFACIAL WO Routine 07/25/2017 Mandibular mass CONTRAST 10:22 AM DIRECTOR INDUSTRIAL after 05/10/2017 Results * Surgical pathology request (08/10/2017 10:00 AM DIRECTOR INDUSTRIAL) [facility] DEPARTMENT OF PATHOLOGY AND GENOMIC MEDICINE Surgical pathology report See link below for PDF Lab [facility] DEPARTMENT OF Report PATHOLOGY AND GENOMIC MEDICINE Result status This is Final Report to [facility] DEPARTMENT OF [id number] PATHOLOGY AND GENOMIC MEDICINE Performing Organization Address City/State/Zipcode [place] [address] [place] [address] PATHOLOGY AND GENOMIC MEDICINE * CT Maxillofacial Wo Contrast (07/25/2017 10:22 AM DIRECTOR INDUSTRIAL) Narrative Performed At EXAMINATION:CT MAXILLOFACIAL WO CONTRAST [...] nasal cavity is clear. IMPRESSION: Unremarkable study. [facility]-[id number] Procedure Note Hm Interface, Radiology Results Incoming - 07/25/2017 11:08 AM DIRECTOR INDUSTRIAL EXAMINATION: CT MAXILLOFACIAL WO CONTRAST COMPARISON: None [...] nasal cavity is clear. IMPRESSION: Unremarkable study. [facility]-[id number] Performing Organization Address City/State/Zipcode Phone Number [facility] [address] [place] [address] after 05/10/2017 Insurance Payer Benefit Subscriber ID Type Phone Address Plan / Group [employer] CIGNA xxxxxxxx HMO [facility] ADV Advance Directives Patient has advance care planning documents on file. For more information, harrison singh contact: Christiano Aldridge [address] [facility] [place] [address]
[2018-05-11 08:25] VITALS: BP 152/81
[2018-05-11 10:37] VITALS: BP 106/72
[2018-05-11 10:45] VITALS: BP 117/80
[2018-05-11 11:00] VITALS: BP 117/74
--- NOTE | 2018-05-11 14:42 | Operative Report ---
DATE OF PROCEDURE: May 11, 2018 PROCEDURE TITLE: Right heart catheterization. INDICATIONS: Shortness of breath. Informed consent was obtained and documented in the chart. PROCEDURE IN DETAIL: The patient was brought to the cardiac catheterization laboratory in a fasting state after written informed consent was obtained. Bilateral groins and right neck were prepped and draped in the usual sterile fashion. One percent lidocaine was infiltrated over the internal jugular vein for local anesthesia. Systemic sedation was given. The right internal jugular vein was accessed under ultrasound guidance. A 7-Malaysian sheath was placed via modified Seldinger technique. A 6-Malaysian thermodilution PA catheter was inserted and advanced into the pulmonary artery under fluoroscopic guidance. Hemodynamic measurements were obtained in the pulmonary capillary wedge, pulmonary arterial, right ventricular, and right atrial positions. Thermodilution measurements were obtained. The catheter was withdrawn followed by the 7-Malaysian sheath. Manual pressure was held until adequate hemostasis was achieved. The patient tolerated the procedure well without any procedure complications. FINDINGS: RA 11/7/6 mmHg. RV 33/1 mmHg. RVEDP 7 mmHg. Pulmonary artery 26/11. Mean 18 mmHg. Wedge 20/14/12 mmHg. Thermodilution cardiac output 5.63. Thermodilution cardiac index 2.74. CONCLUSION: Normal pulmonary pressures. Job#: [id number] TERESA RASHEED
== END | disposition home or self-care (01) ==
LOC: CATH LAB 07:58
PROVIDERS: ATTEND Internal Medicine
DX: R06.02 Shortness of breath (principal); I20.8 Other forms of angina pectoris; R94.39 Abnormal result of other cardiovascular function study; I10 Essential (primary) hypertension; I87.2 Venous insufficiency (chronic) (peripheral); E13.22 Other specified diabetes mellitus with diabetic chronic kidney disease; I12.9 Hypertensive chronic kidney disease with stage 1 through stage 4 chronic kidney disease, or unspecified chronic kidney disease; N18.9 Chronic kidney disease, unspecified; Z79.82 Long term (current) use of aspirin; Z68.36 Body mass index [BMI] 36.0-36.9, adult; Z86.73 Personal history of transient ischemic attack (TIA), and cerebral infarction without residual deficits; Z86.19 Personal history of other infectious and parasitic diseases; Z82.49 Family history of ischemic heart disease and other diseases of the circulatory system; Z82.3 Family history of stroke
CPT/HCPCS: 93451; C1766; C1769; J2001; J2250; J7030

== ENCOUNTER 2018-05-27 18:39 | Emergency (ER) | payer MEDICARE, OTHER ==
[~2018-05-27] VITALS: Ht 165.1 cm; Wt 99.8 kg
[~2018-05-27 18:39] MED LIST changes: -FENTANYL CITRATE/PF 100MCG/2 ML INJ ONE; -HEPARIN SOD/SOD CHLORIDE 2,000 ML ONE; -LIDOCAINE HCL 2% LOCAL 20 ML VIAL ONE; -MIDAZOLAM HCL 2 MG/2 ML VIAL ONE; -SODIUM CHLORIDE 0.9% 1000ML 1,000 ML ONE
--- OUTSIDE RECORDS SUMMARY | 2018-05-27 18:42 | XMS REPORT | Clinical Summary ---
Author Author [facility] [facility] Organization [employer] Address Unknown Phone Unavailable Care Team Providers Care Music Artist Name Role Phone Matt Marino MD PCP [...] (Primary Dx) 07/18/2017 Office Visit Otolaryngology after 05/26/2017 Family History Medical History Relation Name Comments [...] CANCER SCREENING 08/06/1995 COLON CANCER SCREENING 08/06/1995 SHINGLES VACCINES (1 of 08/06/1995 2) PNEUMOCOCCAL 2010 POLYSACCHARIDE VACCINE AGE 65 AND OVER PNEUMOCOCCAL-13 2010 INFLUENZA VACCINE 01/04/2018 Procedures Comments Procedure Name Priority Date/Time Associated Diagnosis SURGICAL PATHOLOGY Routine 08/10/2017 REQUEST 10:[address] MAXILLOFACIAL WO Routine 07/25/2017 Mandibular mass CONTRAST 10:22 AM GRIPS after 05/26/2017 Results * Surgical pathology request (08/10/2017 10:00 AM GRIPS) [facility] DEPARTMENT OF PATHOLOGY AND GENOMIC MEDICINE Surgical pathology report See link below for PDF Lab [facility] DEPARTMENT OF Report PATHOLOGY AND GENOMIC MEDICINE Result status This is Final Report to [facility] DEPARTMENT OF [id number] PATHOLOGY AND GENOMIC MEDICINE Performing Organization Address City/State/Zipcode [place] [address] [place] [address] PATHOLOGY AND GENOMIC MEDICINE * CT Maxillofacial Wo Contrast (07/25/2017 10:22 AM GRIPS) Narrative Performed At EXAMINATION:CT MAXILLOFACIAL WO CONTRAST [facility] COMPARISON:None CLINICAL HISTORY:R22.0 Localized swellingmass and [...] nasal cavity is clear. IMPRESSION: Unremarkable study. [facility]-[id number] Procedure Note Hm Interface, Radiology Results Incoming - 07/25/2017 11:08 AM GRIPS EXAMINATION: CT MAXILLOFACIAL WO CONTRAST COMPARISON: None [...] nasal cavity is clear. IMPRESSION: Unremarkable study. [facility]-[id number] Performing Organization Address City/State/Zipcode Phone Number [facility] [address] [place] [address] after 05/26/2017 Insurance Payer Benefit Subscriber ID Type Phone Address Plan / Group [employer] CIGNA xxxxxxxx [facility] ADV Advance Directives Patient has advance care planning documents on file. For more information, harrison singh contact: Christiano Aldridge [address] [place] [address]
[2018-05-27] MEDS ORDERED: ONDANSETRON HCL 4 MG ORAL DISINTEGRATING TAB PO ONE (20:00)
[2018-05-27] MEDS ORDERED: HYDROCODONE/APAP 5MG-325MG TAB PO ONE (20:00)
[2018-05-27 22:56] VITALS: BP 142/93
== END 2018-05-27 22:58 | disposition home or self-care (01) ==
LOC: ER 18:39
DX: M54.17 Radiculopathy, lumbosacral region (principal); I10 Essential (primary) hypertension; E11.9 Type 2 diabetes mellitus without complications; K21.9 Gastro-esophageal reflux disease without esophagitis; E78.5 Hyperlipidemia, unspecified; Z88.1 Allergy status to other antibiotic agents; Z88.5 Allergy status to narcotic agent
CPT/HCPCS: 99284; Q0162

== ENCOUNTER 2020-11-08 22:01 | Inpatient (IN) | payer MEDICARE ==
[~2020-11-08] VITALS: Ht 165.1 cm; Wt 98.4 kg
[~2020-11-08 22:01] MED LIST changes: +CIPRO500 MG PO; +DOXYCYCLINE HY100 MG PO; +FLUCONAZOLE100 MG PO; +GABAPENTIN300 MG PO; +HYDROCODON-ACE1 EAC9; +KLOR-CON 1010 MEQ; +METOPROLOL SUCC50 MG PO; +PROAIR HFA INH8.5 GM IH; +VANCOMYCIN HCL500 MG PO
[2020-11-08] MEDS ORDERED: SODIUM CHLORIDE 0.9% 500ML 500 ML IV STA (22:08)
[2020-11-08] MEDS ORDERED: PIPERACILLIN/TAZOBACTAM 3.375 GM in SODIUM CHLORIDE 0.9% 50ML 50 ML IV STA (22:08)
[2020-11-08] MEDS ORDERED: ACETAMINOPHEN 325 MG TAB PO STA (22:41)
[2020-11-08 23:03] LABS: BASOPHILS % 0.2 % (0.0-1.0); EOSINOPHILS % 0.2 % (0.0-6.0); HEMATOCRIT 39.8 % (34.2-44.1); HEMOGLOBIN 12.8 g/dL (12.0-16.0); LYMPHOCYTES % 7.9 % (18.0-39.1); MEAN CORPUSCULAR HEMOGLOBIN 28.8 pg (28-32); MEAN CORPUSCULAR HGB CONC 32.2 g/dL (31-35); MEAN CORPUSCULAR VOLUME 89.6 fL (81-99); MONOCYTES # (AUTO) 0.7 (0.2-0.8); MONOCYTES % 5.6 % (4.4-11.3); NEUTROPHILS # (AUTO) 10.5 (2.1-6.9); NEUTROPHILS % 85.3 % (38.7-80.0); RED BLOOD COUNT 4.44 x10e6/uL (3.6-5.1)
[2020-11-08 23:19] LABS: PLATELET COUNT 30 x10e3/uL (140-360)
[2020-11-08 23:23] LABS: ALBUMIN 4.3 g/dL (3.5-5.0); ALBUMIN/GLOBULIN RATIO 1.1 (0.8-2.0); CALCIUM 9.4 mg/dL (8.4-10.2); CREATININE, SERUM 1.63 mg/dL (0.57-1.11)
[2020-11-08 23:32] LABS: CREATINE KINASE MB 0.6 ng/mL (0-5.0)
[2020-11-08 23:36] LABS: CLARITY,URINE CLEAR (CLEAR); COLOR,URINE YELLOW (YELLOW)
[2020-11-08 23:37] LABS: BACTERIA,URINE FEW /HPF; EPITHELIAL CELLS,URINE FEW /LPF; KETONES,URINE NEGATIVE (NEGATIVE); LEUKOCYTE ESTERASE ,URINE NEGATIVE (NEGATIVE); NITRITE,URINE NEGATIVE (NEGATIVE); PROTEIN,URINE DIPSTICK 1+ (NEGATIVE); URINE UROBILINOGEN 0.2 mg/dL (0.2 - 1)
[2020-11-09] VITALS (8 sets, daily range): BP systolic 105–145; BP diastolic 60–78
[2020-11-09] MEDS ORDERED: MORPHINE SULFATE INJ 2 MG/ML SYR IV PRN
[2020-11-09] MEDS ORDERED: ONDANSETRON HCL INJ 2MG/ML 2ML 2 MG/ML VIAL IV PRN
[2020-11-09] MEDS ORDERED: ELIQUIS2.5 MG PO (04:40)
[2020-11-09] MEDS ORDERED: METOPROLOL TART25 MG PO (04:40)
[2020-11-09] MEDS ORDERED: FEROSUL325 MG PO (04:40)
[2020-11-09 08:03] LABS: BASOPHILS # (AUTO) 0.1 (0.0-0.1); BASOPHILS % 0.4 % (0.0-1.0); HEMATOCRIT 35.9 % (34.2-44.1); HEMOGLOBIN 11.4 g/dL (12.0-16.0); LYMPHOCYTES # (AUTO) 1.4 (1.0-3.2); LYMPHOCYTES % 9.6 % (18.0-39.1); MEAN CORPUSCULAR HEMOGLOBIN 28.8 pg (28-32); MEAN CORPUSCULAR HGB CONC 31.8 g/dL (31-35); MEAN CORPUSCULAR VOLUME 90.7 fL (81-99); MONOCYTES # (AUTO) 0.7 (0.2-0.8); NEUTROPHILS # (AUTO) 11.8 (2.1-6.9); NEUTROPHILS % 84.2 % (38.7-80.0); PLATELET COUNT 80 x10e3/uL (140-360); RED BLOOD COUNT 3.96 x10e6/uL (3.6-5.1); RED CELL DISTRIBUTION WIDTH 14.1 % (11.7-14.4)
[2020-11-09 08:22] LABS: ALBUMIN 3.5 g/dL (3.5-5.0); ANION GAP 15.8 mmol/L (8-16); CALCIUM 8.4 mg/dL (8.4-10.2); CREATININE, SERUM 1.79 mg/dL (0.57-1.11); POTASSIUM 3.8 mmol/L (3.5-5.1)
[2020-11-09] MEDS ORDERED: TRAMADOL HCL 50 MG TAB PO PRN (08:30)
[2020-11-09] MEDS ORDERED: ALBUTEROL SULFATE HFA 8GM INHALATION AEROSOL INH SCH (08:30)
[2020-11-09] MEDS ORDERED: FERROUS SULFATE 325 MG TAB PO SCH (09:00)
[2020-11-09] MEDS ORDERED: GABAPENTIN 300 MG CAP PO SCH (09:00)
[2020-11-09] MEDS ORDERED: APIXAB 2.5 MG TABLET PO SCH (09:00)
[2020-11-09] MEDS: PIPERACILLIN/TAZOBACTAM 3.375 GM in SODIUM CHLORIDE 0.9% 50ML 50 ML IV SCH ×2 (11:17→20:57)
[2020-11-09] MEDS: PANTOPRAZOLE SOD 40 MG TABEC PO SCH (11:18)
[2020-11-09] MEDS: METOPROLOL TARTRATE 25 MG TAB PO SCH ×2 (11:18→16:35)
[2020-11-09] MEDS ORDERED: BUMETANIDE1 MG PO (12:36)
[2020-11-09] MEDS ORDERED: CLINDAMYCIN PHOS 900MG/ 50ML 50 ML IV SCH (14:00)
[2020-11-09] MEDS ORDERED: ONDANSETRON HCL 4 MG ORAL DISINTEGRATING TAB PO PRN (16:30)
[2020-11-09] MEDS: BUMETANIDE 1 MG TAB PO SCH (16:34)
[2020-11-09] MEDS ORDERED: METOPROLOL TART50 MG PO (18:06)
[2020-11-09] MEDS: APIXAB 2.5 MG TABLET PO SCH (20:57)
[2020-11-09] MEDS: PRAVASTATIN 20 MG TAB PO SCH (20:57)
[2020-11-10] VITALS (9 sets, daily range): BP systolic 108–132; BP diastolic 57–88
[2020-11-10 05:24] LABS: BASOPHILS # (AUTO) 0.1 (0.0-0.1); BASOPHILS % 0.6 % (0.0-1.0); EOSINOPHILS # (AUTO) 0.1 (0.0-0.4); EOSINOPHILS % 1.3 % (0.0-6.0); HEMATOCRIT 32.7 % (34.2-44.1); HEMOGLOBIN 10.3 g/dL (12.0-16.0); LYMPHOCYTES # (AUTO) 1.7 (1.0-3.2); MEAN CORPUSCULAR HEMOGLOBIN 28.7 pg (28-32); MEAN CORPUSCULAR HGB CONC 31.5 g/dL (31-35); MEAN CORPUSCULAR VOLUME 91.1 fL (81-99); MONOCYTES # (AUTO) 0.8 (0.2-0.8); NEUTROPHILS # (AUTO) 8.5 (2.1-6.9); NEUTROPHILS % 75.5 % (38.7-80.0); PLATELET COUNT 61 x10e3/uL (140-360); RED BLOOD COUNT 3.59 x10e6/uL (3.6-5.1); RED CELL DISTRIBUTION WIDTH 14.2 % (11.7-14.4)
[2020-11-10 06:10] LABS: ANION GAP 14.5 mmol/L (8-16); CALCIUM 8.3 mg/dL (8.4-10.2); CREATININE, SERUM 1.45 mg/dL (0.57-1.11); POTASSIUM 3.5 mmol/L (3.5-5.1)
[2020-11-10 06:36] LABS: ALBUMIN 3.3 g/dL (3.5-5.0); MAGNESIUM 1.7 MG/DL (1.3-2.1)
[2020-11-10] MEDS: ALBUTEROL SULFATE HFA 8GM INHALATION AEROSOL INH SCH (07:55)
[2020-11-10] MEDS: METOPROLOL TARTRATE 50 MG TAB PO SCH (09:00)
[2020-11-10] MEDS: PANTOPRAZOLE SOD 40 MG TABEC PO SCH (09:00)
[2020-11-10] MEDS: APIXAB 2.5 MG TABLET PO SCH ×2 (09:00→21:26)
[2020-11-10] MEDS: PIPERACILLIN/TAZOBACTAM 3.375 GM in SODIUM CHLORIDE 0.9% 50ML 50 ML IV SCH ×2 (09:00→21:26)
[2020-11-10] MEDS: BUMETANIDE 1 MG TAB PO SCH ×2 (09:00→17:00)
[2020-11-10] MEDS: GABAPENTIN 300 MG CAP PO SCH (09:00)
[2020-11-10] MEDS: PRAVASTATIN 20 MG TAB PO SCH (21:26)
[2020-11-11] VITALS (8 sets, daily range): BP systolic 102–135; BP diastolic 59–97
[2020-11-11 06:32] LABS: BASOPHILS # (AUTO) 0.1 (0.0-0.1); BASOPHILS % 0.7 % (0.0-1.0); EOSINOPHILS # (AUTO) 0.2 (0.0-0.4); EOSINOPHILS % 2.7 % (0.0-6.0); HEMATOCRIT 32.9 % (34.2-44.1); HEMOGLOBIN 10.4 g/dL (12.0-16.0); LYMPHOCYTES # (AUTO) 1.4 (1.0-3.2); LYMPHOCYTES % 19.6 % (18.0-39.1); MEAN CORPUSCULAR HEMOGLOBIN 29.4 pg (28-32); MEAN CORPUSCULAR HGB CONC 31.6 g/dL (31-35); MEAN CORPUSCULAR VOLUME 92.9 fL (81-99); MONOCYTES # (AUTO) 0.5 (0.2-0.8); MONOCYTES % 7.6 % (4.4-11.3); NEUTROPHILS # (AUTO) 4.9 (2.1-6.9); NEUTROPHILS % 68.8 % (38.7-80.0); PLATELET COUNT 75 x10e3/uL (140-360); RED BLOOD COUNT 3.54 x10e6/uL (3.6-5.1)
[2020-11-11 06:41] LABS: ALBUMIN 3.1 g/dL (3.5-5.0); ALBUMIN/GLOBULIN RATIO 0.8 (0.8-2.0); ANION GAP 14.7 mmol/L (8-16); CALCIUM 8.8 mg/dL (8.4-10.2); CREATININE, SERUM 1.52 mg/dL (0.57-1.11); POTASSIUM 3.7 mmol/L (3.5-5.1)
[2020-11-11] MEDS: ALBUTEROL SULFATE HFA 8GM INHALATION AEROSOL INH SCH (07:45)
[2020-11-11 08:00] LABS: PLATELET ESTIMATE MODERATELY DECREASED; PLATELET MORPHOLOGY COMMENT FEW EDTA CLUMPING; RBC MORPHOLOGY COMMENT NORMAL
[2020-11-11] MEDS: GABAPENTIN 300 MG CAP PO SCH (09:05)
[2020-11-11] MEDS: APIXAB 2.5 MG TABLET PO SCH ×2 (09:05→21:18)
[2020-11-11] MEDS: METOPROLOL TARTRATE 50 MG TAB PO SCH (09:05)
[2020-11-11] MEDS: PIPERACILLIN/TAZOBACTAM 3.375 GM in SODIUM CHLORIDE 0.9% 50ML 50 ML IV SCH ×2 (09:05→21:18)
[2020-11-11] MEDS: BUMETANIDE 1 MG TAB PO SCH ×2 (09:05→17:39)
[2020-11-11] MEDS: PANTOPRAZOLE SOD 40 MG TABEC PO SCH (09:05)
[2020-11-11] MEDS: BALSAM PERU/CASTOR OIL 60 GM OINT...G. TP SCH (15:36)
[2020-11-11] MEDS: PRAVASTATIN 20 MG TAB PO SCH (21:18)
[2020-11-12] VITALS (8 sets, daily range): BP systolic 106–135; BP diastolic 63–77
[2020-11-12 06:45] LABS: BASOPHILS % 0.6 % (0.0-1.0); EOSINOPHILS # (AUTO) 0.2 (0.0-0.4); EOSINOPHILS % 4.7 % (0.0-6.0); HEMATOCRIT 34.2 % (34.2-44.1); HEMOGLOBIN 10.8 g/dL (12.0-16.0); LYMPHOCYTES # (AUTO) 1.2 (1.0-3.2); LYMPHOCYTES % 23.5 % (18.0-39.1); MEAN CORPUSCULAR HEMOGLOBIN 28.8 pg (28-32); MEAN CORPUSCULAR HGB CONC 31.6 g/dL (31-35); MEAN CORPUSCULAR VOLUME 91.2 fL (81-99); MONOCYTES # (AUTO) 0.5 (0.2-0.8); MONOCYTES % 10.5 % (4.4-11.3); NEUTROPHILS % 59.9 % (38.7-80.0); PLATELET COUNT 51 x10e3/uL (140-360); RED BLOOD COUNT 3.75 x10e6/uL (3.6-5.1); RED CELL DISTRIBUTION WIDTH 13.4 % (11.7-14.4)
[2020-11-12] MEDS: ALBUTEROL SULFATE HFA 8GM INHALATION AEROSOL INH SCH (07:06)
[2020-11-12 07:08] LABS: POTASSIUM 3.8 mmol/L (3.5-5.1)
[2020-11-12 07:09] LABS: ALBUMIN 3.1 g/dL (3.5-5.0); ALBUMIN/GLOBULIN RATIO 0.8 (0.8-2.0); ANION GAP 15.8 mmol/L (8-16); CREATININE, SERUM 1.44 mg/dL (0.57-1.11)
[2020-11-12] MEDS: BUMETANIDE 1 MG TAB PO SCH ×2 (08:48→15:45)
[2020-11-12] MEDS: APIXAB 2.5 MG TABLET PO SCH ×2 (08:48→20:47)
[2020-11-12] MEDS: PANTOPRAZOLE SOD 40 MG TABEC PO SCH (08:49)
[2020-11-12] MEDS: GABAPENTIN 300 MG CAP PO SCH (08:49)
[2020-11-12] MEDS: PIPERACILLIN/TAZOBACTAM 3.375 GM in SODIUM CHLORIDE 0.9% 50ML 50 ML IV SCH ×3 (08:49→20:47)
[2020-11-12] MEDS: METOPROLOL TARTRATE 50 MG TAB PO SCH (08:49)
[2020-11-12] MEDS: BALSAM PERU/CASTOR OIL 60 GM OINT...G. TP SCH (15:08)
[2020-11-12] MEDS: PRAVASTATIN 20 MG TAB PO SCH (20:47)
[2020-11-13] VITALS (8 sets, daily range): BP systolic 102–135; BP diastolic 69–90
[2020-11-13] MEDS: ALBUTEROL SULFATE HFA 8GM INHALATION AEROSOL INH SCH (06:00)
[2020-11-13 06:32] LABS: BASOPHILS % 0.8 % (0.0-1.0); EOSINOPHILS # (AUTO) 0.2 (0.0-0.4); HEMATOCRIT 36.1 % (34.2-44.1); HEMOGLOBIN 11.3 g/dL (12.0-16.0); LYMPHOCYTES # (AUTO) 1.1 (1.0-3.2); LYMPHOCYTES % 23.8 % (18.0-39.1); MEAN CORPUSCULAR HEMOGLOBIN 28.4 pg (28-32); MEAN CORPUSCULAR HGB CONC 31.3 g/dL (31-35); MEAN CORPUSCULAR VOLUME 90.7 fL (81-99); MONOCYTES # (AUTO) 0.6 (0.2-0.8); MONOCYTES % 13.6 % (4.4-11.3); NEUTROPHILS # (AUTO) 2.7 (2.1-6.9); NEUTROPHILS % 56.5 % (38.7-80.0); PLATELET COUNT 85 x10e3/uL (140-360); RED BLOOD COUNT 3.98 x10e6/uL (3.6-5.1); RED CELL DISTRIBUTION WIDTH 13.1 % (11.7-14.4)
[2020-11-13 06:52] LABS: ALBUMIN 3.2 g/dL (3.5-5.0); ALBUMIN/GLOBULIN RATIO 0.8 (0.8-2.0); ANION GAP 14.2 mmol/L (8-16); CALCIUM 9.4 mg/dL (8.4-10.2); CREATININE, SERUM 1.46 mg/dL (0.57-1.11); POTASSIUM 4.2 mmol/L (3.5-5.1)
[2020-11-13] MEDS: PANTOPRAZOLE SOD 40 MG TABEC PO SCH (09:05)
[2020-11-13] MEDS: GABAPENTIN 300 MG CAP PO SCH (09:05)
[2020-11-13] MEDS: APIXAB 2.5 MG TABLET PO SCH ×2 (09:06→20:48)
[2020-11-13] MEDS: METOPROLOL TARTRATE 50 MG TAB PO SCH (09:06)
[2020-11-13] MEDS: BUMETANIDE 1 MG TAB PO SCH ×2 (09:06→16:19)
[2020-11-13] MEDS: PIPERACILLIN/TAZOBACTAM 3.375 GM in SODIUM CHLORIDE 0.9% 50ML 50 ML IV SCH ×2 (09:08→20:47)
[2020-11-13] MEDS ORDERED: SODIUM CHLORIDE 0.9% 100 ML ONE (09:24)
[2020-11-13] MEDS: BALSAM PERU/CASTOR OIL 60 GM OINT...G. TP SCH (12:55)
[2020-11-13] MEDS: PRAVASTATIN 20 MG TAB PO SCH (20:48)
[2020-11-14] VITALS: BP 133/69
[2020-11-14 04:00] VITALS: BP 136/83
[2020-11-14 05:56] LABS: BASOPHILS # (AUTO) 0.1 (0.0-0.1); BASOPHILS % 1.2 % (0.0-1.0); EOSINOPHILS # (AUTO) 0.2 (0.0-0.4); EOSINOPHILS % 3.7 % (0.0-6.0); HEMATOCRIT 36.8 % (34.2-44.1); HEMOGLOBIN 11.7 g/dL (12.0-16.0); LYMPHOCYTES # (AUTO) 1.7 (1.0-3.2); LYMPHOCYTES % 31.8 % (18.0-39.1); MEAN CORPUSCULAR HEMOGLOBIN 28.8 pg (28-32); MEAN CORPUSCULAR HGB CONC 31.8 g/dL (31-35); MEAN CORPUSCULAR VOLUME 90.6 fL (81-99); MONOCYTES # (AUTO) 0.5 (0.2-0.8); MONOCYTES % 9.8 % (4.4-11.3); NEUTROPHILS # (AUTO) 2.7 (2.1-6.9); NEUTROPHILS % 51.4 % (38.7-80.0); PLATELET COUNT 79 x10e3/uL (140-360); RED BLOOD COUNT 4.06 x10e6/uL (3.6-5.1); RED CELL DISTRIBUTION WIDTH 13.1 % (11.7-14.4)
[2020-11-14 06:38] LABS: ALBUMIN 3.1 g/dL (3.5-5.0); ALBUMIN/GLOBULIN RATIO 0.8 (0.8-2.0); ANION GAP 13.8 mmol/L (8-16); CALCIUM 9.3 mg/dL (8.4-10.2); CREATININE, SERUM 1.56 mg/dL (0.57-1.11); POTASSIUM 3.8 mmol/L (3.5-5.1)
[2020-11-14 08:14] LABS: EOSINOPHILS % (MANUAL) 2 % (0-7); LYMPHOCYTES % (MANUAL) 27 % (19-48); MONOCYTES % (MANUAL) 10 % (3.4-9.0); NEUTROPHILS % (MANUAL) 55 % (40-74)
[2020-11-14 08:45] VITALS: BP 136/83
[2020-11-14] MEDS ORDERED: AUGMENTIN 500-1 EACH PO (08:56)
[2020-11-14] MEDS: BUMETANIDE 1 MG TAB PO SCH (09:00)
[2020-11-14] MEDS: METOPROLOL TARTRATE 50 MG TAB PO SCH (09:00)
[2020-11-14] MEDS: BALSAM PERU/CASTOR OIL 60 GM OINT...G. TP SCH (09:00)
[2020-11-14] MEDS: GABAPENTIN 300 MG CAP PO SCH (09:00)
[2020-11-14] MEDS: PIPERACILLIN/TAZOBACTAM 3.375 GM in SODIUM CHLORIDE 0.9% 50ML 50 ML IV SCH (09:00)
[2020-11-14] MEDS: APIXAB 2.5 MG TABLET PO SCH (09:00)
[2020-11-14] MEDS: PANTOPRAZOLE SOD 40 MG TABEC PO SCH (09:00)
[2020-11-14 09:11] VITALS: BP 134/70
== END 2020-11-14 09:51 | disposition home or self-care (01) | DRG 872 ==
LOC: ER 22:05 → ERHOLD 11-09 00:07 → MED/SURG2 11-09 01:12
PROVIDERS: ADMIT Internal Medicine; ATTEND Internal Medicine
DX: A41.9 Sepsis, unspecified organism (principal); L03.116 Cellulitis of left lower limb; D69.6 Thrombocytopenia, unspecified; E11.22 Type 2 diabetes mellitus with diabetic chronic kidney disease; E11.9 Type 2 diabetes mellitus without complications; E83.51 Hypocalcemia; E88.09 Other disorders of plasma-protein metabolism, not elsewhere classified; E78.5 Hyperlipidemia, unspecified; I12.9 Hypertensive chronic kidney disease with stage 1 through stage 4 chronic kidney disease, or unspecified chronic kidney disease; N18.30 Chronic kidney disease, stage 3 unspecified; D69.59 Other secondary thrombocytopenia; B94.8 Sequelae of other specified infectious and parasitic diseases; K21.9 Gastro-esophageal reflux disease without esophagitis; E11.42 Type 2 diabetes mellitus with diabetic polyneuropathy; Z20.822 Contact with and (suspected) exposure to COVID-19; E66.01 Morbid (severe) obesity due to excess calories; Z68.36 Body mass index [BMI] 36.0-36.9, adult
CPT/HCPCS: 36415; 71045; 76705; 80053; 81001; 82550; 82553; 82784; 82948; 83605; 83735; 83880; 84484; 85025; 85379; 87040; 93005; 93971; 94664; 99251; 99284; J2543; J7040; J7050; U0002

== ENCOUNTER 2022-03-21 18:01 | Emergency (ER) | payer MEDICARE ==
[~2022-03-21] VITALS: Ht 166.4 cm; Wt 95.3 kg
[~2022-03-21 18:01] MED LIST changes: +AUGMENTIN 500-1 EACH PO; +ELIQUIS2.5 MG PO; +FEROSUL325 MG PO; +METOPROLOL TART25 MG PO; +METOPROLOL TART50 MG PO
[2022-03-21] MEDS ORDERED: FENTANYL CITRATE/PF 100MCG/2 ML INJ ONE (18:32)
[2022-03-21] MEDS ORDERED: ONDANSETRON HCL INJ 2MG/ML 2ML 2 MG/ML VIAL ONE (18:32)
[2022-03-21] MEDS ORDERED: ULTRAM 50MG50 MG PO (19:22)
[2022-03-21] MEDS: Morphine 4mg INJECTION 4 MG/ML INJ IM STA (19:25)
== END 2022-03-21 20:20 | disposition home or self-care (01) ==
LOC: ER 18:08
DX: M25.552 Pain in left hip (principal); Z96.643 Presence of artificial hip joint, bilateral; I10 Essential (primary) hypertension; E11.9 Type 2 diabetes mellitus without complications; K21.9 Gastro-esophageal reflux disease without esophagitis
CPT/HCPCS: 73700; 74176; 99283; J2270; J2405; J3010